=== PATIENT | female | born 1975 | race Caucasian/White ===

== ENCOUNTER → 2021-03-29 15:49 | Outpatient (CLI) | payer BC, SELFPAY ==
--- NOTE | ~2021-03-29 | MM_ITS ---
EXAMINATION: MM screening jackelin BI w jazmine HISTORY: Screening mammogram TECHNIQUE: Craniocaudal and mediolateral oblique 3-D tomosynthesis images were obtained and synthetic 2-D images were generated. CAD analysis was submitted and interpreted. COMPARISON: No prior mammogram is available for comparison at this institution. BREAST PARENCHYMAL COMPOSITION: There are scattered areas of fibroglandular density. FINDINGS: There is no evidence of suspicious mass, calcification, or architectural distortion to sugg est malignancy in either breast. There has been no suspicious interval change. IMPRESSION: 1. No mammographic evidence of malignancy. 2. Recommend routine screening mammography in one year. BI-RADS Category 1: Negative Reviewed, dictated and finalized at location A.
== END ==
PROVIDERS: Visit Provider Nurse Practitioner Women's Health
DX: Z12.31 Encounter for screening mammogram for malignant neoplasm of breast (principal)
CPT/HCPCS: 77063; 77067

== ENCOUNTER 2021-08-17 08:30 | Outpatient (RCR) | payer BC, SELFPAY ==
[2021-08-17 09:52] LABS: Cortisol Baseline 7.83 ug/dL
== END 2021-11-15 23:59 | disposition home or self-care (01) ==
LOC: ANHVASCINF 08:30
PROVIDERS: Visit Provider Internal Medicine Endocrinology, Diabetes & Metabolism
DX: R94.7 Abnormal results of other endocrine function studies (principal)
CPT/HCPCS: 36415; 82533; 96372; J0834

== ENCOUNTER → 2022-07-01 10:03 | Outpatient (CLI) | payer OTHER, SELFPAY ==
--- NOTE | ~2022-07-01 | CT_ITS ---
EXAMINATION: CT facial bones wo con DATE: 07/01/2022 10:30 INDICATION: Left-sided otalgia. Left facial pain. TECHNIQUE: Computed tomography (CT) of the facial bones and maxillofacial region was performed withou t intravenous contrast. Automated exposure control and iterative reconstruction technique were employ ed. The dose-length product was 309.17 mGy-cm. COMPARISON: None. FINDINGS: The orbits are normal. There is mild mucosal thickening in the paranasal sinuses. The parot id glands are normal. There are no pathologically enlarged lymph nodes. There is thickening of the o uter table of the left parietal bone, consistent with an osteoma. The tympanic cavities and mastoid a ir cells are normal. IMPRESSION: 1. No etiology for the patient's symptoms. Reviewed, dictated and finalized at location A.
== END ==
PROVIDERS: Visit Provider Otolaryngology
DX: H92.02 Otalgia, left ear (principal)
CPT/HCPCS: 70486